=== PATIENT | male | born 1955 | race Caucasian/White ===

== ENCOUNTER → 2023-08-02 | Outpatient (CLI) | payer OTHER ==
[2023-08-02 14:55] LABS: FREE T4 (FREE THYROXINE) 1.4 ng/dL (0.76-1.46); THYROID STIMULATING HORMONE 2.37 uIU/mL (0.36-3.74)
== END | disposition home or self-care (01) ==
LOC: RADPV 14:05
PROVIDERS: ATTEND Chiropractor
DX: E04.9 Nontoxic goiter, unspecified (principal); I70.0 Atherosclerosis of aorta
CPT/HCPCS: 84439; 84443; 84481; 93306